=== PATIENT | female | born 1990 | race Caucasian/White ===

== ENCOUNTER 2023-01-27 14:50 | Outpatient (AMB) | payer OTHER, SELFPAY ==
--- NOTE | 2023-01-27 15:57 | MHC.OFFWIV ---
Intake Vital Signs 01/27/23 16:01 Height 17 in Weight 172 lb BMI 418.4 BP 124/82 Blood Pressure Location Lt brachial Position Sitting Pulse 89 Pulse Source Pulse Oximeter Temp 98.4 F Temp Source Temporal Artery Scan Pulse Oximetry (%) 100 Oxygen Delivery Method Room Air Intake Visit Reasons: EP, Right ear pain Intake Note: Pt is here c/o right ear discomfort. Allergies No Known Allergies Allergy (Verified 01/27/23 16:08) Medication List - Last Reconciled 01/27/23 by Jaime Mireles MD No Known Home Meds HPI EP, Right ear pain HPI Details 33-year-old female presents to the office for a sick visit. Patient is having pain in the right ear with itching symptoms. She has history of eczema in both her ear canals. Excessive scratching triggers the symptoms. Physical Exam Vital Signs: Last Vital Signs Temp 98.4 F 01/27/23 16:01 Pulse 89 01/27/23 16:01 BP 124/82 01/27/23 16:01 Pulse Ox 100 01/27/23 16:01 Oxygen Delivery Method Room Air 01/27/23 16:01 BMI result Body Mass Index 418.4 Const General: cooperative and healthy appearing Nutritional Appearance: well nourished Orientation/consciousness: patient oriented x3 Limitations: no limitations HEENT Other: Right and left ears: External ear canal shows flaky skin. Ear canals are congested. Tympanic membrane is dull. Head: Yes normal to inspection Eyes General: appearance normal, both eyes and all related structures Neck Neck: Yes normal visual inspection Chest Chest palpation & inspection: normal palpation of entire chest wall Resp Effort & Inspection: normal respiratory effort Neuro General: patient oriented x3 Assessment & Plan Assessment & Plan (1) Otitis externa of both ears: Code(s): H60.93 - Unspecified otitis externa, bilateral Plan: Antibiotic, steroid cream and year drops have been prescribed. If symptoms do not improve to follow-up here. Coding Level of Care Code Est Pt Level 3 (58380) Diagnoses Otitis externa of both ears H60.93
[2023-01-27 16:01] VITALS: BP 124/82; PULSE 89; TEMP 36.9; O2SAT 100; BMI 418.4
== END 2023-01-27 16:40 | disposition home or self-care (01) ==
PROVIDERS: Visit Provider Internal Medicine
DX: H60.93 Unspecified otitis externa, bilateral (principal)
CPT/HCPCS: 99213

== ENCOUNTER 2025-03-21 11:38 | Outpatient (AMB) | payer OTHER, SELFPAY ==
[2025-03-21 12:18] VITALS: BP 106/64; PULSE 80; TEMP 36.8; O2SAT 100; BMI 26.9
--- NOTE | 2025-03-21 12:18 | AM.OFFWIN_ITS ---
Intake Vital Signs 03/21/25 12:18 Height 5 ft 4 in Weight 157 lb BMI 26.9 BP 106/64 Blood Pressure Location Lt brachial Position Sitting Pulse 80 Pulse Source Pulse Oximeter Temp 98.2 F Temp Source Oral Pulse Oximetry (%) 100 Oxygen Delivery Method Room Air Intake Visit Reasons: ep pulled muscle in both legs Intake Note: pt presents with bilateral quadriceps pain after urgently running after her toddler Allergies No Known Allergies Allergy (Verified 03/21/25 12:22) Medication List - Last Reconciled 03/21/25 by Reid Berrios MD fluoxetine 20 mg PO DAILY Do you need a note to return to daycare/school/sports/work: Yes HPI ep pulled muscle in both legs HPI Details History of Present Illness The patient is a 35 year old female presenting with muscle strain and pain in bilateral thighs. Muscle strain and pain: - The issue began this morning after run robert a short distance to catch up with her child who ran into a busy street. - She described the sensation as similar to a rubber band snapping in her muscles. - The patient experienced symptoms of fe eling very hot and subsequently felt unwell, ending on the ground. - She reported vomiting following the in cident and described her legs as feeling heavy and very painful. - No significant distance was covered du ring the run. - The patient mentioned participating in a game of kickball a week prior where she experienced mild soreness, but not at the same level of pain or dysfunction. - There are no known allergies and the p atient is typically very healthy. - She attempted self-management with Tyl enol this morning but pain persisted. - She is taking Prozac. Problem List - Bilateral muscle strain - Heavy leg sensation - Pain in thighs Plan - Prescribe a short course of prednisone 5 mg for 3 days to decrease inflammation and facilitate recovery. - Instruct on taking diclofenac 75 mg BI D with food for one week to help manage pain and inflammation. - Encourage resting and minimizing physi damaris activity to allow muscle recovery, with advice to partake in hot showers and massages for muscle relaxation. - Medications have been sent to the [facility]. - Advise patient to follow up with PCP i f no relief Review of Systems - General: No fever no chills - Neurological: No headaches no dizziness - Ear nose throat: No sore throat no hearing difficulty no ear pain - Cardiovascular: No syncope, no chest pain, no palpitations - Gastrointestinal: No nausea vomiting or diarrhea Physical Exam General: No acute distress HEENT: No acute findings Neck: Supple Respiratory system: Able to talk in full sentences, no audible wheeze Gastrointestinal: No pain Extremities: Soreness with palpation over anterior thigh muscles bilateral PRESIDENT CELEBRITY ACQUISTION: Alert awake oriented x3 motor intact Skin: Normal turgor Physical Exam Vital Signs: Last Vital Signs Temp 98.2 F 03/21/25 12:18 Pulse 80 03/21/25 12:18 BP 106/64 03/21/25 12:18 Pulse Ox 100 03/21/25 12:18 Oxygen Delivery Method Room Air 03/21/25 12:18 BMI result Body Mass Index 26.9 Assessment & Plan Assessment & Plan (1) Strain of rectus femoris muscle: Comment: Bilateral Code(s): S76.819A - Strain of other specified muscles, fascia and tendons at thigh level, unspecified thigh, initial encounter Plan History of Present Illness The patient is a 35 year old female presenting with muscle strain and pain in bilateral thighs. Muscle strain and pain: - The issue began this morning after running a short distance to catch up with her child who ran into a busy street. - She described the sensation as similar to a rubber band snapping in her muscles. - The patient experienced symptoms of feeling very hot and subsequently felt unwell, ending on the ground. - She reported vomiting following the incident and described her legs as feeling heavy and very painful. - No significant distance was covered during the run. - The patient mentioned participating in a game of kickball a week prior where she experienced mild soreness, but not at the same level of pain or dysfunction. - There are no known allergies and the patient is typically very healthy. - She attempted self-management with Tylenol this morning but pain persisted. - She is taking Prozac. Problem List - Bilateral muscle strain - Heavy leg sensation - Pain in thighs Plan - Prescribe a short course of prednisone 5 mg for 3 days to decrease inflamm ation and facilitate recovery. - Instruct on taking diclofenac 75 mg BID with food for one week to help manage pain and inflammation. - Encourage resting and minimizing physical activity to allow muscle recovery, with advice to partake in hot showers and massages for muscle relaxation. - Medications have been sent to the patient's [facility] on [facility]. - Advise patient to follow up with PCP if no relief Medications: New prednisone 5 mg PO DAILY 3 tabs 0RF 3 days diclofenac sodium take it with food 75 mg PO BID 14 tabs 0RF pain 7 days Coding Level of Care Code Est Pt Level 3 (20835) Diagnoses Strain of rectus femoris muscle S76.819A
--- OUTSIDE RECORDS SUMMARY | 2025-03-21 14:42 | XMS_ITS | Clinical Summary ---
Author Organization [employer] [facility] ity Address [address] [place] [address] Care Team Providers [employer] Name Role Phone Courtney Tay MD Primary Care Provider Fransico ilable Surgical History Surgery Date Site/Laterality Comments SECTION 01/28/12 PROCEDURE: PA DELIVERY ONLY Medical History Medical History Date Comments Migraine DX:Migraine Family History Medical History Relation Name Comments Alcohol abuse Mother Bipolar disorder Mother Depression Mother Hypertension Mother Relation Name Status Comments Brother 1 Alive Bipolar Brother 2 Alive Mother Social History Tobacco Use Types Packs/Day Years Used Date Smoking Tobacco: Never Smokeless Tobacco: Never Alcohol Use Standard Drinks/Week Comments Yes 0 (1 standard drink = 0.6 oz pur e alcohol) Comments Unknown Sex and Gender Information Value Date Recorded Sex Assigned at Not on file Legal Sex Female 3:26 PM EST Gender Identity Not on file Sexual Orientation Not on file Obstetrics History Plan of Treatment Health Maintenance Due Date Last Done Comments HPV Vaccines (2 - 3-dose series) 03/10/2009 02/10/2009 Cervical Cancer Screening: Pap Smear 2011 DTaP,Tdap,and Td Vaccines (7 - Td or Tdap) 09/30/2017 10/01/2007, 03/22/1999, 05/31/1993, Additional history exists Depression Screening 06/15/2024 COVID-19 Vaccine ( season) 2025 Influenza Vaccine (#1) 2025 04/11/2015, 2012 RSV Immunization Adult Patients (1 - 1-dose 75+ series) 2065 HIB Vaccines Completed 08/17/1991, 01/28/1991 IPV Vaccines Completed 03/22/1999, 09/1991, 08/17/1991, Additional history exists MMR Vaccines Completed 03/22/1999, 08/14, 08/17/1991 Hepatitis B Vaccines Completed 11/26/2001, 12/04/2000, 04/14/2000 Varicella Vaccines Completed 04/20/2009, 10/01/2007 Meningococcal ACWY Vaccine Aged Out 10/30/2010 N o longer eligible based on patient's age to complete this topic Hepatitis A Vaccines Aged Out No long er eligible based on patient's age to complete this topic Meningococcal B Vaccine Aged Out No l onger eligible based on patient's age to complete this topic Pneumococcal Vaccine: Pediatrics (0 to 5 Years) and At-Risk Patients (6 to 49 Years) Aged Out No longer eligible based on patient's age to complete this topic RSV Immunization Patients Under 20 months Aged Out No longer eligible based on patient's age to complete this topic Care [employer] Relationship Specialty Start Date End Date Courtney Tay MD PCP - General 02/18/11
== END 2025-03-21 12:39 | disposition home or self-care (01) ==
PROVIDERS: Visit Provider Internal Medicine
DX: S76.819A Strain of other specified muscles, fascia and tendons at thigh level, unspecified thigh, initial encounter (principal)

== ENCOUNTER → 2025-03-21 11:38 | Outpatient (BNVA) | payer OTHER, SELFPAY | PROVIDERS: Visit Provider Internal Medicine | DX: S76.811A Strain of other specified muscles, fascia and tendons at thigh level, right thigh, initial encounter (principal); S76.812A Strain of other specified muscles, fascia and tendons at thigh level, left thigh, initial encounter; X58.XXXA Exposure to other specified factors, initial encounter; Y93.02 Activity, running; Y92.9 Unspecified place or not applicable; Y99.9 Unspecified external cause status | CPT/HCPCS: 99212 ==